=== PATIENT | male | born 1985 | race African-American/Black ===

== ENCOUNTER 2020-11-27 13:20 | Outpatient (CLI) | payer BC | END 2020-11-27 13:21 | disposition home or self-care (01) | LOC: BICRAD 13:20 | PROVIDERS: ATTEND Internal Medicine Pulmonary Disease | DX: R06.00 Dyspnea, unspecified (principal) | CPT/HCPCS: 71046 ==

== ENCOUNTER 2021-01-31 09:50 | Outpatient (CLI) | payer BC | END 2021-01-31 09:51 | disposition home or self-care (01) | LOC: BICRAD 09:50 | PROVIDERS: ATTEND Internal Medicine Pulmonary Disease | DX: R06.00 Dyspnea, unspecified (principal) | CPT/HCPCS: 71046 ==

== ENCOUNTER 2021-02-04 02:56 | Emergency (ER) | payer BC ==
[2021-02-04] MEDS ORDERED: Sodium Chloride For Inhalation 0.9% 3 ML NEB ONE (03:48)
== END 2021-02-04 07:00 | disposition home or self-care (01) ==
LOC: ERS 02:56
DX: J45.901 Unspecified asthma with (acute) exacerbation (principal); Z86.16 Personal history of COVID-19
CPT/HCPCS: 71046; J7620

== ENCOUNTER 2021-03-04 08:55 | Emergency (ER) | payer BC ==
[2021-03-04] MEDS ORDERED: Ipratropium Bromide 2.5 ml Neb ONE (09:24)
[2021-03-04] MEDS ORDERED: methylPREDNISolone Sod Succ/PF 125 MG/2 ML VIAL ONE (09:24)
[2021-03-04] MEDS ORDERED: Magnesium 2 GM/50 ML BAG (IN WATER) ONE (09:24)
[2021-03-04] MEDS ORDERED: Albuterol Sulfate 1.25 MG/3 ML NEB ONE (09:24)
[2021-03-04] MEDS ORDERED: Iopamidol-370 76% 500 ML 1 ML ONE (09:32)
[2021-03-04 09:36] LABS: Hemoglobin 18.5 g/dL (14.0-18.0); Mean Corpuscular Hemoglobin 32.6 pg (27.0-31.0); Mean Corpuscular Volume 95.9 fL (78.0-98.0); Mean Platelet Volume 7.3 fL (7.4-10.4); Platelet Count 296 thou/uL (130-400); Red Blood Cell (RBC) Count 5.66 mill/uL (4.70-6.10); White Blood Cell (WBC) Count 15.1 thou/uL (4.8-10.8)
[2021-03-04 09:55] LABS: ALT (SGPT) 36 U/L (8-55); AST (SGOT) 28 U/L (5-34); Albumin 4.5 g/dL (3.5-5.0); Alkaline Phosphatase 100 U/L (40-110); Anion Gap 15 mmol/L (10-20); BUN (Urea Nitrogen) 10 mg/dL (8.9-20.6); Bilirubin, Total 0.7 mg/dL (0.2-1.2); Calc. Creatinine Clearance 0 mL/min (70-130); Calcium 10.3 mg/dL (7.8-10.44); Carbon Dioxide 30 mmol/L (22-29); Chloride 101 mmol/L (98-107); Globulin 3.1 g/dL (2.4-3.5); Glucose 95 mg/dL (70-105); Potassium 4.7 mmol/L (3.5-5.1); Protein, Total 7.6 g/dL (6.0-8.3); Sodium 141 mmol/L (136-145)
[2021-03-04 10:39] LABS: Band 2 % (5-11); Eosinophils 47 % (0-10); Lymphocytes 17 % (21-51); MDiff Complete? YES; Monocytes 3 % (0-10); Neutrophil 24 % (42-75); Platelet Morphology Comment Appears Adequate; RBC Morphology Normal; Reactive Lymphocytes 5 % (0-10)
== END 2021-03-04 12:42 | disposition home or self-care (01) ==
LOC: ERS 08:55
DX: J18.9 Pneumonia, unspecified organism (principal); J45.909 Unspecified asthma, uncomplicated
CPT/HCPCS: 71275; 80053; 83880; 84484; 85025; 85060; 93005; 96365; 96375; J2930; J3475; Q9967

== ENCOUNTER 2022-07-17 09:38 | Day surgery (SDC) | payer BC ==
[2022-07-15 11:33] VITALS: BMI 25.4
[2022-07-17] MEDS ORDERED: Oxymetazoline HCl 0.05% (30 ML BOT) ONE ×2 (10:53→12:29)
[2022-07-17] MEDS ORDERED: Lidocaine 1% (PF) 30 ML VIAL ONE (12:29)
[2022-07-17] MEDS ORDERED: Bacitracin Zinc Ointment 30 gm TUBE ONE (12:29)
[2022-07-17] MEDS ORDERED: EPINEPHrine 1 MG/ML AMP ONE (12:29)
[2022-07-17] MEDS ORDERED: fentaNYL PF 100 MCG/2 ML SYRINGE ONE (12:40)
[2022-07-17] MEDS ORDERED: NEOSTIGMINE 3 MG/3 ML SYR 3 MG/3 ML SYRINGE ONE (13:15)
[2022-07-17] MEDS ORDERED: Rocuronium Bromide 10 MG/ML (10ML VIAL) ONE (13:15)
[2022-07-17] MEDS ORDERED: Lidocaine 1% PF 5 ML VIAL ONE (13:15)
[2022-07-17] MEDS ORDERED: PROPOFOL 200 MG/20 ML VIAL ONE (13:15)
[2022-07-17] MEDS ORDERED: Dexamethasone 20 MG/5 ML VIAL ONE (13:15)
[2022-07-17] MEDS ORDERED: Ondansetron PF 4 MG/2 ML Vial ONE (13:15)
[2022-07-17] MEDS ORDERED: Glycopyrrolate 0.2 MG/ML 5 ML SYRINGE ONE (13:15)
[2022-07-17] MEDS ORDERED: methylPREDNISolone Acetate 40 mg/ml Vial ONE (13:58)
== END 2022-07-17 16:28 | disposition home or self-care (01) ==
LOC: SDC 09:38
PROVIDERS: ATTEND Specialist
PROC: 099S8ZZ Drainage of Right Frontal Sinus, Via Natural or Artificial Opening Endoscopic (ICD-10-PCS; principal; 2022-07-17)
PROC: 09TU8ZZ Resection of Right Ethmoid Sinus, Via Natural or Artificial Opening Endoscopic (ICD-10-PCS; principal; 2022-07-17)
PROC: 09BQ8ZZ Excision of Right Maxillary Sinus, Via Natural or Artificial Opening Endoscopic (ICD-10-PCS; principal; 2022-07-17)
PROC: 09SM0ZZ Reposition Nasal Septum, Open Approach (ICD-10-PCS; principal; 2022-07-17)
PROC: 099W8ZZ Drainage of Right Sphenoid Sinus, Via Natural or Artificial Opening Endoscopic (ICD-10-PCS; principal; 2022-07-17)
PROC: 09SL8ZZ Reposition Nasal Turbinate, Via Natural or Artificial Opening Endoscopic (ICD-10-PCS; principal; 2022-07-17)
PROC: 09TV8ZZ Resection of Left Ethmoid Sinus, Via Natural or Artificial Opening Endoscopic (ICD-10-PCS; principal; 2022-07-17)
PROC: 09BR8ZZ Excision of Left Maxillary Sinus, Via Natural or Artificial Opening Endoscopic (ICD-10-PCS; principal; 2022-07-17)
PROC: 099X8ZZ Drainage of Left Sphenoid Sinus, Via Natural or Artificial Opening Endoscopic (ICD-10-PCS; principal; 2022-07-17)
PROC: 099T8ZZ Drainage of Left Frontal Sinus, Via Natural or Artificial Opening Endoscopic (ICD-10-PCS; principal; 2022-07-17)
DX: J01.91 Acute recurrent sinusitis, unspecified (principal); J32.4 Chronic pansinusitis; J34.2 Deviated nasal septum; J34.3 Hypertrophy of nasal turbinates; G50.1 Atypical facial pain; J45.909 Unspecified asthma, uncomplicated; Z79.620 Long term (current) use of immunosuppressive biologic
CPT/HCPCS: J0171; J1030; J1100; J2001; J2405; J2704